=== PATIENT | male | born 1965 | race Caucasian/White ===

== ENCOUNTER 2017-10-05 17:33 | Emergency (ER) | payer MEDICAID ==
[~2017-10-05] VITALS: Ht 170.2 cm; Wt 105.2 kg
[2017-10-05 17:52] VITALS: Ht 170.2 cm; Wt 105.2 kg
[2017-10-05 19:31] VITALS: BP 129/91
== END 2017-10-05 19:31 | disposition home or self-care (01) ==
LOC: ED 17:33
DX: L50.9 Urticaria, unspecified (principal); I10 Essential (primary) hypertension